=== PATIENT | male | born 1975 | race American Indian/Alaskan Native ===

== ENCOUNTER 2017-04-06 13:27 | Emergency (ER) | payer OTHER ==
[2017-04-06] MEDS ORDERED: BENADRYL IV ONE (16:16)
[2017-04-06] MEDS ORDERED: PEPCID IV ONE (16:16)
[2017-04-06] MEDS ORDERED: NORVASC PO ONE (17:30)
[2017-04-06 17:41] VITALS: BP 150/102
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
== END 2017-04-06 18:04 | disposition home or self-care (01) ==
LOC: ED 13:27
DX: T78.40XA Allergy, unspecified, initial encounter (principal); I10 Essential (primary) hypertension; F17.200 Nicotine dependence, unspecified, uncomplicated; Z88.0 Allergy status to penicillin
CPT/HCPCS: 96374; 96375; 99282; J1200; J2930